=== PATIENT | female | born 1980 | race Caucasian/White ===

== ENCOUNTER 2016-12-13 05:58 | Emergency (ER) | payer MEDICAID ==
[~2016-12-13] VITALS: Ht 162.6 cm; Wt 145.1 kg
[~2016-12-13 05:58] MED LIST: Acetaminophen PO; LOSA1TAB35 PO; [UNRECOGNIZED DRUG - CODE] PO
--- NOTE | 2016-12-13 06:15 | NUR ---
TO ROOM 5A FOR ER EVAL.UNABLE TO GET LIST OF MEDS AND BP AT PRESENT TIME DUE TO PTS H/A AND VOMITING
[2016-12-13] MEDS ORDERED: IV NORMAL SALINE 1000 ML BAG IV ONE (07:00)
[2016-12-13] MEDS ORDERED: PROCHLORPERAZINE EDISYLATE 10 MG/2 ML VIAL IV ONE (07:00)
[2016-12-13] MEDS ORDERED: diphenhydrAMINE 50 MG/1 ML VIAL IV ONE (07:00)
[2016-12-13 07:05] LABS: BASOPHILS % (AUTO) 0.2 % (0.0-2.0); EOSINOPHILS # (AUTO) 0.5 K/uL (0.0-0.7); EOSINOPHILS % (AUTO) 3.3 % (0.0-7.0); HEMATOCRIT 37.4 % (37-47); HEMOGLOBIN 12.4 G/DL (12.0-16.0); LYMPHOCYTES # (AUTO) 2.8 K/uL (20.0-40.0); LYMPHOCYTES % (AUTO) 20.5 % (20.5-51.5); MEAN CORPUSCULAR HGB CONC 33 g/dL (32.0-37.0); MEAN CORPUSCULAR VOLUME 72.4 FL (81.0-99.0); MONOCYTES # (AUTO) 0.9 K/uL (2.0-10.0); MONOCYTES % (AUTO) 6.7 % (0.0-11.0); NEUTROPHILS # (AUTO) 9.6 K/uL (1.8-8.9); NEUTROPHILS % (AUTO) 69.3 % (38.5-71.5); PLATELET COUNT (AUTO) 417 K/UL (150-450); RED BLOOD CELL COUNT(AUTO) 5.17 MIL/UL (4.2-5.4); RED CELL DISTRIBUTION WIDTH 17.5 % (11.5-14.5); WHITE BLOOD COUNT (AUTO) 13.8 K/UL (4.0-11.2)
[2016-12-13] MEDS ORDERED: PROCHLORPERAZINE EDISYLATE 10 MG/2 ML VIAL ONE (07:10)
[2016-12-13] MEDS ORDERED: diphenhydrAMINE 50 MG/1 ML VIAL ONE (07:10)
--- NOTE | 2016-12-13 07:11 | NUR ---
sbar report to am shift meds administered and 1l 0.9ns infusing. ot's sig other at the bedside.
[2016-12-13 07:13] LABS: CALCIUM 9.1 mg/dL (8.5-10.1); CREATININE 1.1 mg/dL (0.6-1.3); POTASSIUM 3.3 mmol/L (3.5-5.1)
[2016-12-13 07:29] LABS: EOSINOPHILS % (MANUAL) 3 % (0-8); LYMPHOCYTES % (MANUAL) 26 % (20-40); METAMYELOCYTES % 1 % (0-1); MONOCYTES % (MANUAL) 3 % (2-10); NEUTROPHILS % (MANUAL) 67 % (42-75)
[2016-12-13 07:30] LABS: PLATELET ESTIMATE INCRE
[2016-12-13] MEDS ORDERED: BENZTROPINE MESYLATE 2 MG/2 ML AMPUL IM ONE (07:30)
[2016-12-13 07:31] LABS: ANISOCYTOSIS 1+; HYPOCHROMASIA 1+; OVALOCYTES 2+; TEAR DROP CELLS 1+
[2016-12-13] MEDS ORDERED: BENZTROPINE MESYLATE 2 MG/2 ML AMPUL ONE (07:45)
[2016-12-13] MEDS ORDERED: HYDROMORPHONE 1 MG/1 ML DISP.SYRIN IV ONE (10:15)
[2016-12-13] MEDS ORDERED: HYDROMORPHONE 1 MG/1 ML DISP.SYRIN ONE (10:17)
--- NOTE | 2016-12-13 10:39 | NUR ---
Patient discharged to home in stable conditon. Written and verbal after care instructions given. Patient verbalizes understanding of instructions.pt says feels better, deneis pain or nausea at this point. pt with so, pt not driving.
[2016-12-13 10:41] VITALS: BP 149/88
== END 2016-12-13 10:42 | disposition home or self-care (01) ==
LOC: ER 06:00
DX: R51 Headache (principal); N94.6 Dysmenorrhea, unspecified; D68.0 Von Willebrand disease; I10 Essential (primary) hypertension; Z88.8 Allergy status to other drugs, medicaments and biological substances
CPT/HCPCS: 36415; 70450; 71010; 80048; 84484; 84703; 85025; 85730; 96361; 96372; 96374 ×2; 96375; 99285; J0515; J0780; J1170; J1200; J7030 ×2; 70030-TC; A4663

== ENCOUNTER 2016-12-13 20:37 | Emergency (ER) | payer MEDICAID ==
[~2016-12-13] VITALS: Ht 162.6 cm; Wt 145.1 kg
--- NOTE | 2016-12-13 21:15 | NUR ---
DR FOX IN TO SEE,PT NOT TALKING AT PRESENT, MOVING ARMS SLOWLY. MOVING HEAD SLIGHTLY WHEN CALLED , NOT VERBALLY RESPONDING. IRREGULAR PULSE, PT PLACED ON THE MONITOR. DAUGHTER AT THE BEDSIDE.
--- NOTE | 2016-12-13 21:21 | NUR ---
PT HR WAS 50-75,IRREGULAR, PLACED IN THE MONITOR,MONITORING SINUS WITH BIGEMINAL PVCS. DR MADE AWARE. EKG DONE ,PT MOVED AND HYPERVENTILATED , FAMILY AT BEDSIDE. IV SL TO RT AC.
[2016-12-13] MEDS ORDERED: IV NORMAL SALINE 1000 ML BAG IV ONE (21:30)
--- NOTE | 2016-12-13 21:30 | NUR ---
PT STILL NON RESPONSIVE , REEVALUATING , PT TO CT WITH AN ACLS RN,
[2016-12-13 21:43] LABS: CREATININE 1.1 mg/dL (0.6-1.3); POTASSIUM 3.4 mmol/L (3.5-5.1)
[2016-12-13 21:50] LABS: BASOPHILS # (AUTO) 0.1 K/uL (0.0-8.0); BASOPHILS % (AUTO) 0.4 % (0.0-2.0); EOSINOPHILS % (AUTO) 0.1 % (0.0-7.0); HEMATOCRIT 40.7 % (37-47); HEMOGLOBIN 13.5 G/DL (12.0-16.0); LYMPHOCYTES # (AUTO) 1.3 K/uL (20.0-40.0); LYMPHOCYTES % (AUTO) 4.7 % (20.5-51.5); MEAN CORPUSCULAR HEMOGLOBIN 23.5 UUG (27.0-31.0); MEAN CORPUSCULAR HGB CONC 33 g/dL (32.0-37.0); MEAN CORPUSCULAR VOLUME 70.9 FL (81.0-99.0); MONOCYTES # (AUTO) 0.4 K/uL (2.0-10.0); MONOCYTES % (AUTO) 1.5 % (0.0-11.0); NEUTROPHILS # (AUTO) 25.5 K/uL (1.8-8.9); NEUTROPHILS % (AUTO) 93.3 % (38.5-71.5); PLATELET COUNT (AUTO) 558 K/UL (150-450); RED BLOOD CELL COUNT(AUTO) 5.75 MIL/UL (4.2-5.4)
[2016-12-13 21:58] LABS: WHITE BLOOD COUNT (AUTO) 27.3 K/UL (4.0-11.2)
[2016-12-13] MEDS ORDERED: LEVETIRACETAM IV 500 MG in IV DEXTROSE 5% 100 ML IV ONE (22:00)
--- NOTE | 2016-12-13 22:19 | NUR ---
PT INTUBATED AFTER ETOMIDATE AND SUCCINYLCHOLINE WAS GIVEN.
--- NOTE | 2016-12-13 22:20 | NUR ---
PATIENT WAS SUCCESSFULLY INTUBATED BY DR FOX WITH 7.0 ETTUBE. PLACED PATIENT ON AC 20, 600VT, +5, 100% PER MD VERBAL ORDER. MARTI AND LINDA VALDEZ ASSISTED WITH INTUBATION. ETTUBE @ 22CM LIP LINE. RESEARCH GEOLOGIST USED FOR CUFF ASSESSMENT/INFLATION. ANCHORFAST IN PLACE. AMBUBAG AT BEDSIDE.
[2016-12-13] MEDS ORDERED: MANNITOL 25% 12.5 G/50 ML VIAL IV ONE ×3 (22:22→22:30)
[2016-12-13 22:28] LABS: BAND % (MANUAL) 3 % (0-10); LYMPHOCYTES % (MANUAL) 7 % (20-40); MONOCYTES % (MANUAL) 3 % (2-10); NEUTROPHILS % (MANUAL) 87 % (42-75)
[2016-12-13] MEDS ORDERED: ETOMIDATE 20 MG/10 ML VIAL IV ONE (22:30)
[2016-12-13] MEDS ORDERED: SUCCINYLCHOLINE CHLORIDE 200 MG/10 ML VIAL IV ONE (22:30)
[2016-12-13] MEDS ORDERED: LEVETIRACETAM 500 MG/5 ML VIAL IV ONE (22:33)
[2016-12-13 22:48] LABS: ABG BASE EXCESS -17.8 mmol/L; ABG HCO3 9.1 mmol/L; ABG PCO2 25.5 mmHg (35.0-45.0); ABG PH 7.171 (7.350-7.450); ABG PO2 55.3 mmHg (75.0-100.0); ABG SITE LEFT RADIAL; ABG TOTAL HEMOGLOBIN 13.1 G/dL (12.0-16.0); COHb 1.7 % (0.5-1.5); MetHb 0.4 % (0.0-1.5); O2Hb 78.7 % (94.0-97.0); VENT MODE VENT - A/C; VT, ABG 600 mL
--- NOTE | 2016-12-13 23:00 | NUR ---
PT TO TRANSFER TO [facility].DR WILKERSON TO ACCEPT THE PT.
[2016-12-13] MEDS ORDERED: PROPOFOL 100 ML IV ONE (23:09)
[2016-12-13] MEDS ORDERED: MIDAZOLAM HCL 2 MG/2 ML VIAL IV ONE (23:15)
[2016-12-13] MEDS ORDERED: LABETALOL HCL 100 MG/20 ML VIAL IV ONE (23:15)
[2016-12-13 23:20] VITALS: BP 154/110
[2016-12-13] MEDS ORDERED: LABETALOL 20 MG/4 ML VIAL IV ONE (23:23)
--- NOTE | 2016-12-13 23:23 | NUR ---
SBP 172-175, PT GIVEN LABETALOL WITH GOOD RESULT. CXRAY DONE AND ET TUBE PULLED OUT BY RT TO 22 IN THE LIP PER ERMD. PT READY TO TRANSFER, REPORT TO TRANSFER TEAM GIVEN , PT GIVEN VERSED AND PLACED ON PROFOPOL DRIP BEFORE TRANSPORT.
[2016-12-13] MEDS ORDERED: MIDAZOLAM HCL 5 MG/ML VIAL ONE (23:24)
[2016-12-13] MEDS ORDERED: PROPOFOL 100 ML ONE (23:34)
[2016-12-14] MEDS ORDERED: IV NORMAL SALINE 500 ML BAG IV ONE
--- NOTE | 2016-12-31 11:08 | NUR ---
Mandatory information entered for proper departure from [facility] as it was not done on day of visit.
== END 2016-12-13 23:23 | disposition short-term general hospital (02) ==
LOC: ER 20:37
DX: I62.9 Nontraumatic intracranial hemorrhage, unspecified (principal); D72.829 Elevated white blood cell count, unspecified; D68.0 Von Willebrand disease; I10 Essential (primary) hypertension; R51 Headache; Z88.8 Allergy status to other drugs, medicaments and biological substances
CPT/HCPCS: 36415; 36600; 70030-TC; 70450; 71010; 85025; 85730; 86850; 86900; 86901; 93005; A4663; J0330; J1953; J2150; J2250; J3490; J7030; J7040; J7060